=== PATIENT | female | born 1995 | race Caucasian/White ===

== ENCOUNTER → 2023-10-27 | Outpatient (CLI) | payer OTHER ==
[2023-10-31 06:47] LABS: ESTRADIOL BY IMMUNOASSAY 34 pg/mL
[2023-11-01 16:30] LABS: ANTI-MULLERIAN HORMONE 5.828 ng/mL (0.401-16.015)
[2023-11-02 07:41] LABS: 17-HYDROXYPROGESTERONE 52.92 ng/dL (<=206.00)
== END ==
LOC: LAB SHORT 16:00 → LAB 16:00
PROVIDERS: General Practice
DX: N97.9 Female infertility, unspecified (principal)
CPT/HCPCS: 82670; 83498; 83520; 84146